=== PATIENT | female | born 1985 | race Caucasian/White ===

== ENCOUNTER 2023-08-27 22:27 | Emergency (ER) | payer OTHER, SELFPAY ==
[2023-08-27 22:41] VITALS: BP 138/91; PULSE 81; TEMP 36.8; O2SAT 100; BMI 26.6
--- NOTE | 2023-08-27 23:27 | PC.NURSE ---
Pt presents to ER for what she decribes as a boil inside her vagina Pt states she began having pain down there close to 1 week ago Pt states she was using warm compresses frequently and the pain began to go away Pt states she worked yesterday and was on her feet a lot, which caused it to become much bigger and more painful Pt denies any STD exposures Pt set up by this nurse in a gown with a sheet and the gyno bed This nurse spent time educating pt on what to expect and to prepare for the draining
[2023-08-27] MEDS: LIDOCAINE HCL 1% 100 MG/10 ML MDV INJ (23:29)
--- NOTE | 2023-08-27 23:50 | ED_ITS ---
HPI - Female Genitourinary General Chief complaint: Skin/Abscess/Foreign Body Stated complaint: BOIL Time Seen by Provider: 08/27/23 22:48 Source: patient Mode of arrival: walk-in Limitations: no limitations History of Present Illness HPI Narrative: 37-year-old female presents for a painful lump on her right labia. She has had it for a week. She has been doing warm compresses and there is been no drainage. The pain is moderate and continuous. She is never had anything like this before but is worried about an abscess. Related Data Home Medications ?Medication ?Instructions ?Recorded ?Confirmed bupropion HCl 150 mg tablet,12 hr 150 mg PO DAILY 08/27/23 08/27/23 sustained-release (Wellbutrin SR) cetirizine 10 mg capsule (Zyrtec) 10 mg PO DAILY PRN allergy symptoms 08/27/23 08/27/23 dicyclomine 10 mg capsule 10 mg PO BID 08/27/23 08/27/23 Previous Rx's ?Medication ?Instructions ?Recorded acetaminophen 300 mg-codeine 30 mg 1 tab PO Q6H PRN pain 5 days #20 08/27/23 tablet tabs cephalexin 500 mg capsule 500 mg PO QID 10 days #40 caps 08/27/23 Allergies Allergy/AdvReac Type Severity Reaction Status Date / Time No Known Drug Allergies Allergy Verified 08/27/23 22:45 Review of Systems ROS Narrative A ten point review of systems is negative except as noted above. Exam Narrative Exam Narrative: Nurses note and vital signs reviewed and patient is not hypoxic. General: The patient appears well and in no apparent distress. Patient is r esting comfortably on cart. Skin: Warm, dry, no pallor noted. There is no rash noted. Head: Normocephalic, atraumatic Eye: Normal conjunctiva, no drainage Ears, Nose, Mouth, and Throat: oral mucosa is moist. Nares patent. Cardiovascular: Regular Rate and Rhythm Respiratory: Patient is in no distress, no accessory muscle use, lungs are clear to auscultation, no wheezing, rales or rhonchi Back: non-tender GI: Soft and nontender : The mucosal side of the right labia has swelling and tenderness in this area is 2 cm in diameter. No open area or drainage. Musculoskeletal: No joint swelling Neurological: Awake and alert Psychiatric: Cooperative Constitutional Vital Signs, click to edit/add: Last Vital Signs Temp 98.2 F 08/27/23 22:41 Pulse 81 08/27/23 22:41 Resp 16 08/27/23 22:41 BP 138/91 08/27/23 22:41 Pulse Ox 100 08/27/23 22:41 O2 Del Method Room Air 08/27/23 22:41 Course Vital Signs Vital signs: Vital Signs Temperature 98.2 F 08/27/23 22:41 Pulse Rate 81 08/27/23 22:41 Respiratory Rate 16 08/27/23 22:41 Blood Pressure 138/91 08/27/23 22:41 Pulse Oximetry 100 08/27/23 22:41 Oxygen Delivery Method Room Air 08/27/23 22:41 Temperature 98.2 F 08/27/23 22:41 Pulse Rate 81 08/27/23 22:41 Respiratory Rate 16 08/27/23 22:41 Blood Pressure 138/91 08/27/23 22:41 Pulse Oximetry 100 08/27/23 22:41 Oxygen Delivery Method Room Air 08/27/23 22:41 MDM - Female Genitourinary MDM Narrative Medical decision making narrative: The following procedure was performed by me. Local infiltration was carried out with 1% lidocaine without epinephrine resulting in complete anesthesia. The area was prepped with Betadine x 3 and draped sterilely. Using a #11 blade the abscess was incised and drained of a small amount of purulent material. Culture taken. No complications and she tolerated the procedure well. My clinical impression is that she has had a Bartholin abscess. It has been incised and drained. She was offered STD testing but declines. She is placed on Keflex and Tylenol 3. Treatment diagnosis and follow-up were discussed with the patient. Differential Diagnosis Differential diagnosis: Likely other (Abscess, cellulitis) Discharge Plan Discharge Stand Alone Forms: Portal Instructions Chief Complaint: Skin/Abscess/Foreign Body Clinical Impression: Abscess of Bartholin's gland Patient Disposition: Home, Self-Care Time of Disposition Decision: 23:47 Condition: Good Mode of Transportation: Private Vehicle Prescriptions / Home Meds: New acetaminophen-codeine 300-30 mg tablet 1 tab PO Q6H PRN (Reason: pain) 5 Days Qty: 20 0RF cephalexin 500 mg capsule 500 mg PO QID 10 Days Qty: 40 0RF No Action bupropion HCl [Wellbutrin SR] 150 mg tablet sustained-release 12 hr 150 mg PO DAILY Zyrtec 10 mg capsule 10 mg PO DAILY PRN (Reason: allergy symptoms) dicyclomine 10 mg capsule 10 mg PO BID Print Language: Jamaican Instructions: Bartholin Cyst (ED), Incision and Drainage (ED) Additional Instructions: Warm soaks for 10 to 15 minutes 4 times a day Follow-up with Dr. Velazquez within a week Referrals: JEAN-CLAUDE BARRON [Primary Care Provider] - 1 week
[2023-08-28] MEDS: ACETAMINOPHEN 300 MG/ 30 MG CODEINE TABLET 1 TAB PO (00:14)
== END 2023-08-28 00:23 | disposition home or self-care (01) ==
PROVIDERS: Emergency Provider Emergency Medicine; PCP Internal Medicine
DX: N75.1 Abscess of Bartholin's gland (principal)
CPT/HCPCS: 56420; 87070; 99283